=== PATIENT | female | born 1980 | race Caucasian/White ===

== ENCOUNTER → 2016-12-04 | Outpatient (CLI) | payer OTHER | LOC: EDBD 10:45 → BMCIMAGING 10:45 | PROVIDERS: ATTEND Internal Medicine | DX: R07.9 Chest pain, unspecified (principal) ==

== ENCOUNTER → 2017-04-20 | Outpatient (CLI) | payer OTHER ==
[~2017-04-20] MED LIST: IOPAMIDOL (ISOVUE 370) 100 ML BTL IV ONE; METOPROLOL TARTRATE 5 MG/5 ML INJ ONE
== END ==
LOC: FIMAGING 13:23
PROVIDERS: ATTEND Internal Medicine Cardiovascular Disease
DX: R07.9 Chest pain, unspecified (principal); R06.02 Shortness of breath; R42 Dizziness and giddiness
CPT/HCPCS: Q9967

== ENCOUNTER → 2017-05-15 | Outpatient (CLI) | payer OTHER | LOC: BMCIMAGING 11:01 | PROVIDERS: ATTEND Nurse Practitioner Adult Health | DX: R07.89 Other chest pain (principal) | CPT/HCPCS: G0204 ==